=== PATIENT | female | born 1975 | race American Indian/Alaskan Native ===

== ENCOUNTER 2017-10-17 20:25 | Emergency (ER) | payer MEDICAID ==
[2017-10-17 21:18] VITALS: BP 120/80
[2017-10-17] MEDS ORDERED: TYLENOL PO ONE (21:21)
--- NOTE | 2017-10-17 22:22 | XRay Report ---
FINAL REPORT PROCEDURE: XR ANKLE 3+V RT TECHNIQUE: RIGHT ankle radiographs, AP, lateral, and oblique views. CPT 71647 HISTORY: pain COMPARISON: No prior studies are available for comparison. FINDINGS: Fracture (s) and/or Dislocation(s): An acute comminuted oblique fracture is noted involving the distal fibular diaphysis without significant displacement of the fracture fragments.. Alignment: Normal. Joint space(s): Normal. Soft tissues: Moderate degree soft tissue swelling is noted over the lateral aspect.. Bone mineralization: Normal. Foreign bodies: None. Calcaneal spurring: Small calcaneal spur is noted.. IMPRESSION: Acute fracture distal fibula..
--- NOTE | 2017-10-17 22:31 | Cat Scan Report ---
FINAL REPORT PROCEDURE: CT HEAD/BRAIN WO CON TECHNIQUE: Computerized tomography of the head was performed without contrast material. HISTORY: head Injury COMPARISON: No prior studies are available for comparison. FINDINGS: Skull and scalp: There is evidence of prior occipital craniotomy.. Paranasal sinuses: Normal. Ventricles and subarachnoid spaces: Normal. Cerebrum: No evidence of hemorrhage, acute infarction or mass . Cerebellum and brainstem: No evidence of hemorrhage, acute infarction or mass. Vasculature: Normal. Comments: None. IMPRESSION: No acute intracranial abnormality.
--- NOTE | 2017-10-17 22:37 | Cat Scan Report ---
FINAL REPORT PROCEDURE: CT CERVICAL SPINE WO CON TECHNIQUE: Computerized tomography of the cervical spine was performed from the skull base to T1 without contrast material. HISTORY: head Injury COMPARISON: No prior studies are available for comparison. FINDINGS: There is evidence of occipital craniotomy. There is loss of cervical lordosis. Vertebral height is within normal limits. An acute fracture is not identified. A 7 millimeter hypodense nodule is noted in the left lobe thyroid. C1-2: No significant abnormality. C2-3: No significant abnormality. C3-4: No significant abnormality. C4-5: No significant abnormality. C5-6: Minimal degree broad-based disc osteophyte complex is noted without significant spinal canal compromise.. C6-7: No significant abnormality. C7-T1: No significant abnormality. Other: No additional findings. IMPRESSION: Mild degree cervical spondylosis as described above. No acute abnormality. Straightening of the cervical spine is most likely secondary to spasm or positioning..
[2017-10-17] MEDS ORDERED: ZOFRAN ODT PO ONE (23:01)
[2017-10-17] MEDS ORDERED: PERCOCET 5/325 PO ONE (23:01)
--- NOTE | 2017-10-17 23:01 | Emergency Department Report ---
ED Fall HPI - General Chief Complaint: Fall Stated Complaint: R ANKLE PAIN Time Seen by Provider: 10/17/17 22:33 Source: patient, family Mode of arrival: Stretcher - History of Present Illness Initial Comments: Patient airport that she stepped off a curb and fell. She says she hit the back of her head and twisted her right ankle. This happened today. Patient reports headache, neck pain and right ankle pain at 8 out of 10. She reports that she cannot bear on her right ankle.. Pain is achy all over. Denies any dizziness, nausea or vomiting. Denies any feeling of dizziness prior to falling. She said that fall was accidental. Denies any open wounds or laceration. No medication taken. Pain is better with rest and worse with movement. MD Complaint: fall -: This evening Fall From: standing When Fall Occurred: 1-3 hours [employer] Fall Witnessed: yes, by family Place Fall Occurred: street Loss of Consciousness: none Prolonged Down Time?: no Symptoms Prior to Fall: none Location: head, neck Location - Extremities: Right: Ankle (pain and swelling) Severity: severe Severity scale (0 -10): 10 Quality: aching Context: tripped/slipped Associated Symptoms: headache, neck pain, unable to walk. denies: numbness, weakness, chest paint, shortness of breath, abdominal pain, hematuria, lightheaded, vertigo, confusion - Related Data Previous Rx's Medication Instructions Recorded Last Taken Type Codeine/Butalbital/ASA/Caffein 1 - 2 each PO Q4H #14 capsule 05/05/13 Unknown Rx [Fiorinal with Codeine #3 Cap] Docusate Sodium [Colace] 100 mg PO BID PRN #30 capsule 10/18/17 Unknown Rx HYDROcodone/ACETAMINOPHEN [Reading 1 each PO Q6H PRN #12 tablet 10/18/17 Unknown Rx 5-325 Tablet] Ibuprofen [Motrin] 600 mg PO Q8H PRN #21 tablet 10/18/17 Unknown Rx Allergies Allergy/AdvReac Type Severity Reaction Status Date / Time No Known Allergies Allergy Unverified 10/17/17 21:18 ED Review of Systems ROS: Stated complaint: R ANKLE PAIN Other details as noted in HPI Comment: All other systems reviewed and negative Constitutional: no symptoms reported Eyes: denies: eye pain, eye discharge ENT: denies: ear pain, throat pain Respiratory: no symptoms reported Cardiovascular: denies: chest pain, palpitations, dyspnea on exertion, edema, syncope, paroxysmal nocturnal dyspnea Gastrointestinal: denies: abdominal pain, nausea, vomiting, diarrhea, constipation, hematemesis, melena, hematochezia Genitourinary: denies: urgency, dysuria, frequency, hematuria, discharge Musculoskeletal: joint swelling, arthralgia. denies: back pain, myalgia Skin: denies: rash Neurological: headache. denies: weakness, numbness, paresthesias, confusion, abnormal gait, vertigo ED Past Medical Hx - Past Medical History Previous Medical History?: No - Surgical History Past Surgical History?: Yes Hx Open Heart Surgery: No Additional Surgical History: Brain Surgery, Tubal Ligation, - Family History Family history: no significant - Social History Smoking Status: Never Smoker Substance Use Type: None - Medications Home Medications: Home Medications Medication Instructions Recorded Confirmed Last Taken Type Codeine/Butalbital/ASA/Caffein 1 - 2 each PO Q4H #14 capsule 05/05/13 Unknown Rx [Fiorinal with Codeine #3 Cap] Docusate Sodium [Colace] 100 mg PO BID PRN #30 capsule 10/18/17 Unknown Rx HYDROcodone/ACETAMINOPHEN [[place] 1 each PO Q6H PRN #12 tablet 10/18/17 Unknown Rx 5-325 Tablet] Ibuprofen [Motrin] 600 mg PO Q8H PRN #21 tablet 10/18/17 Unknown Rx ED Physical Exam - General Limitations: No Limitations General appearance: alert, in no apparent distress - Head Head exam: Present: atraumatic, normocephalic, normal inspection, other (normal exam) - Expanded Head Exam Expanded Head exam: Absent: laceration, abrasion, contusion, hematoma, racoon eyes, nye's sign, general tenderness, tenderness of temporal artery, CSF rhinorrhea , CSF otorrhea - Eye Eye exam: Present: normal appearance, PERRL, EOMI. Absent: scleral icterus, conjunctival injection, nystagmus, periorbital swelling, periorbital tenderness Pupils: Present: normal accommodation - ENT ENT exam: Present: normal exam, normal orophraynx, mucous membranes moist - Neck Neck exam: Present: normal inspection, full ROM, other (C-spine tenderness). Absent: tenderness, meningismus, lymphadenopathy, thyromegaly - Expanded Neck Exam Expanded Neck exam: Absent: tenderness, midline deformity, anterior neck swelling, thyroid mass, carotid bruit, tracheal deviation - Respiratory Respiratory exam: Present: normal lung sounds bilaterally. Absent: respiratory distress, chest wall tenderness, accessory muscle use - Cardiovascular Cardiovascular Exam: Present: regular rate, normal rhythm, normal heart sounds. Absent: systolic murmur, diastolic murmur - GI/Abdominal GI/Abdominal exam: Present: soft, normal bowel sounds. Absent: distended, tenderness, guarding, rebound, rigid, organomegaly, mass, bruit, pulsatile mass , hernia - Extremities Exam Extremities exam: Present: tenderness, normal capillary refill, joint swelling, other (no clubbing or cyanosis to all extremities. Swelling to right ankle otherwise no swelling to other extremities. +2 pulses all extremities. No neurovascular compromise. No laceration, abrasion or ecchymotic area to extremities.). Absent: normal inspection, full ROM, pedal edema, calf tenderness - Expanded Lower Extremity Exam Right Hip exam: Present: normal inspection, full ROM, pelvic stability. Absent: tenderness, swelling, abrasion, laceration, ecchymosis, deformity, crepidus, dislocation, erythema, external rotation, internal rotation, shortening Upper Leg exam: Present: normal inspection, full ROM. Absent: tenderness, swelling, abrasion, laceration, ecchymosis, deformity, crepidus, dislocation, erythema Knee exam: Present: normal inspection, full ROM, full knee extension. Absent: tenderness, swelling, abrasion, laceration, ecchymosis, deformity, crepidus, dislocation, erythema, effusion, pain w/ pronation/supination, pain/laxity with varus Lower Leg exam: Present: normal inspection, full ROM. Absent: tenderness, swelling, abrasion, laceration, ecchymosis, deformity, crepidus, dislocation, erythema, palpable cord, Robin's sign Ankle exam: Present: tenderness (right outer ankle), swelling (right outer ankle ). Absent: normal inspection, full ROM (Limited range of motion to the right ankle patient with pain on plantar and dorsiflexion to right outer ankle), abrasion, laceration, ecchymosis, deformity, crepidus, dislocation, erythema Foot/Toe exam: Present: normal inspection, full ROM, swelling (mild swelling right dorsal proximal foot). Absent: tenderness, abrasion, laceration, ecchymosis, deformity, crepidus, dislocation, erythema, amputation, puncture wound, foreign body, calcaneal tenderness, tenderness at base of 5th metatarsal , nail avulsion, subungual hematoma Neuro vascular tendon exam: Present: motor deficit (patient with limited range of motion and +3 strength and right foot due to ankle fracture.), significant pain with passive ROM of distal joint. Absent: no vascular compromise, pulse deficit, abnormal cap refill, sensory deficit, tendon deficit, extremity cold to touch, pallor, abnormal 2-point discrimination, decreased fine/light touch, foot drop, peroneal nerve deficit Gait: Positive: unable to bear weight - Back Exam Back exam: Present: normal inspection, full ROM. Absent: tenderness, CVA tenderness (R), CVA tenderness (L), muscle spasm, paraspinal tenderness, vertebral tenderness, rash noted - Neurological Exam Neurological exam: Present: alert, oriented X3, abnormal gait (due to right ankle fracture), motor sensory deficit (decreased motor function to right ankle due to fracture. Sensory function intact), reflexes normal - Psychiatric Psychiatric exam: Present: normal affect, normal mood - Skin Skin exam: Present: warm, dry, intact, normal color. Absent: rash ED Course Vital Signs 10/17/17 21:13 Temperature 97.9 F Pulse Rate 89 Respiratory 18 Rate Blood Pressure 120/80 O2 Sat by Pulse 99 Oximetry - Reevaluation(s) Reevaluation #1: 10/18/17 00:11 She received Tylenol 650 mg by mouth in triage area which did not relieve her pain. She received Percocet 5/325 2 tablets by mouth prior to splinting and pain has been relieved. - Orthopedic Splinting/Casting Injury #1 Side: right Lower Extremity Injury Location: ankle Lower Extremity Immobilizer: posterior splint ([place]) Other Orthopedic Equipment: crutches Additional Comments: She will good color, sensation, movement and temperature details of right foot status post splint placement ED Medical Decision Making - Radiology Data Radiology results: report reviewed X-ray of right ankle 3 views reveal patient calcaneal spurring. Moderate degree of soft tissue swelling over the lateral aspect of right ankle. Alignment is normal. Joint spaces are normal. Patient with fracture to right fibula distally. Acute comminuted oblique fracture involving the distal fibula diaphysis without significant displacement of the fracture fragments CT scan of the head/brain without contrast shows no acute intracranial findings The skin of the C-spine reveals spasm. Spondylosis which is chronic. - Medical Decision Making ED course: Patient status post fall with complaint of right ankle pain and swelling on and able to weight-bear. She is also complaining that she fell and hit her head and CT scan of head reveals no acute intracranial findings. CT scan off C-spine reveal no acute fracture or subluxation. X-ray of right ankle reveal patient with fracture distal fibula. This was communicated to patient and she voiced understanding. I discussed with her splint care and need to follow up with orthopedic doctor for further management of fracture. I also discussed with her that she will need to not weight-bear to right lower extremity and try to see orthopedics this week for further instructions. I instructed her that there is a possibility that she might get cast. Patient was given Tylenol 650 mg by mouth in triage which did not help her pain. She was given Percocet 5/325 mg 2 tablets by mouth in emergency room which relieved her pain. Please refer to procedure note for splinting of right ankle. She has good neurovascular check status post splinting. Patient also taught how to use crutches and she was discharged home with her family member in stable condition with prescription for Reading, stool softener, Flexeril, Motrin and to follow-up with orthopedic doctor in 2-3 days. Critical care attestation.: If time is entered above; I have spent that time in minutes in the direct care of this critically ill patient, excluding procedure time. ED Disposition Clinical Impression: Arthralgia of right ankle, Neck pain, acute, Neck muscle spasm Accidental fall Qualifiers: Encounter type: initial encounter Qualified Code(s): W19.XXXA - Unspecified fall, initial encounter Closed fracture of right distal fibula Qualifiers: Encounter type: initial encounter Fracture morphology: unspecified fracture morphology Qualified Code(s): S82.831A - Other fracture of upper and lower end of right fibula, initial encounter for closed fracture Minor head injury without loss of consciousness Qualifiers: Encounter type: initial encounter Qualified Code(s): S09.90XA - Unspecified injury of head, initial encounter Disposition: TO HOME OR SELFCARE Is pt being admited?: No Does the pt Need Aspirin: No Condition: Stable Instructions: Arthralgia (ED), Musculoskeletal Pain (ED), Splint Care (ED), Crutch Instructions (ED), Ankle Fracture (ED), Acute Headache (ED), Minor Head Injury (ED), Muscle Spasm (ED) Additional Instructions: Please follow up with a primary care physician on 10/18/2017 following minor head injury. He will need to have reassessment done and if he cannot get your primary care physician you can follow-up at urgent care or back in the emergency room for reevaluation Please discharge instruction on closed head injury and if you develop any symptoms please return to the emergency room See discharge instruction and splint care While up with orthopedic doctor for management of fracture fibula/ankle. Please avoid getting in splint wet. Please do not drive or operate heavy machinery while taking [place] and Flexeril as these medications causes drowsiness Reading will make you constipated so increase her fluid intake to 2 L of fluids per day and also takes stool softener. Prescriptions: Docusate Sodium [Colace] 100 mg PO BID PRN #30 capsule PRN Reason: Constipation HYDROcodone/ACETAMINOPHEN [[place] 5-325 Tablet] 1 each PO Q6H PRN #12 tablet PRN Reason: Pain, Moderate (4-6) Ibuprofen [Motrin] 600 mg PO Q8H PRN #21 tablet PRN Reason: Pain Referrals: KEEGAN GRIFFIN MD [Staff Physician] - 2-3 Days your , primary care physician [Other] - 2-3 Days [facility] [Outside] - 2-3 Days Forms: Accompanied Note, Work/School Release Form(ED)
== END 2017-10-18 00:28 | disposition home or self-care (01) ==
LOC: ED 20:25
DX: S82.831A Other fracture of upper and lower end of right fibula, initial encounter for closed fracture (principal); S09.8XXA Other specified injuries of head, initial encounter; M54.2 Cervicalgia; M62.838 Other muscle spasm; W01.0XXA Fall on same level from slipping, tripping and stumbling without subsequent striking against object, initial encounter; Y93.89 Activity, other specified; Y92.89 Other specified places as the place of occurrence of the external cause; Y99.8 Other external cause status
CPT/HCPCS: 70450; 72125; Q0162

== ENCOUNTER 2017-12-14 09:08 | Outpatient (CLI) | payer MEDICAID ==
--- NOTE | 2017-12-14 10:09 | XRay Report ---
RIGHT ANKLE, 3 views: History: right ankle pain. The distal fibular fracture is unchanged in position and alignment since 10/17/17. A small amount of callus formation is identified at the fracture site. No new findings. IMPRESSION: Healing distal fibular fracture.
== END 2017-12-14 09:09 | disposition home or self-care (01) ==
LOC: XRAY 09:08
PROVIDERS: ATTEND Orthopaedic Surgery
DX: M25.771 Osteophyte, right ankle (principal); S82.831D Other fracture of upper and lower end of right fibula, subsequent encounter for closed fracture with routine healing; X58.XXXD Exposure to other specified factors, subsequent encounter